=== PATIENT | male | born 1995 | race Caucasian/White ===

== ENCOUNTER 2022-03-19 06:11 | Emergency (ER) | payer MEDICAID ==
[~2022-03-19] VITALS: Ht 177.8 cm; Wt 143.0 kg
[~2022-03-19 06:11] MED LIST: CYCL-1 PO
[2022-03-19 06:32] VITALS: BP 135/90
--- NOTE | 2022-03-19 07:10 | NUR ---
pt reports this is the second hospital he has been at today. in [place], pt states "all they gave me is a shot of toradol" pt is ambulatory, taking pictures with cell phone in his room prior to nurse assessment.
== END 2022-03-19 09:29 | disposition home or self-care (01) ==
LOC: ER 06:12
DX: M54.6 Pain in thoracic spine (principal); R35.0 Frequency of micturition; R19.7 Diarrhea, unspecified; G89.29 Other chronic pain; Z88.0 Allergy status to penicillin; Z88.1 Allergy status to other antibiotic agents
CPT/HCPCS: 72128; 72131; 99284

== ENCOUNTER 2022-03-19 21:33 | Emergency (ER) | payer MEDICAID | END 2022-03-19 23:02 | disposition left against medical advice (07) | LOC: ER 21:35 | DX: Z04.6 Encounter for general psychiatric examination, requested by authority (principal); Z53.21 Procedure and treatment not carried out due to patient leaving prior to being seen by health care provider ==

== ENCOUNTER 2022-03-25 03:11 | Emergency (ER) | payer MEDICAID ==
[~2022-03-25] VITALS: Ht 177.8 cm; Wt 135.0 kg
[2022-03-25 04:09] VITALS: BP 146/92
[2022-03-25] MEDS ORDERED: ESCITALOPRAM OXALATE 5 MG TABLET PO ONE (09:50)
[2022-03-25] MEDS ORDERED: busPIRone 15mg tablet PO ONE (09:50)
== END 2022-03-25 10:01 | disposition home or self-care (01) ==
LOC: ER 03:14
DX: F41.9 Anxiety disorder, unspecified (principal); G89.29 Other chronic pain; M54.50 Low back pain, unspecified; F17.200 Nicotine dependence, unspecified, uncomplicated; F12.90 Cannabis use, unspecified, uncomplicated; Z88.0 Allergy status to penicillin; Z88.1 Allergy status to other antibiotic agents
CPT/HCPCS: 99283